=== PATIENT | female | born 1985 | race Caucasian/White ===

== ENCOUNTER 2020-08-19 09:28 | Inpatient (IN) | payer SELFPAY ==
[2020-08-19] MEDS ORDERED: NA CHLORIDE 0.9% 1,000 ML ONE ×2 (10:27→14:57)
[2020-08-19] MEDS ORDERED: DIPHENHYDRAMINE 50 MG/ML VIAL ONE ×2 (10:27→21:16)
[2020-08-19] MEDS ORDERED: LORazepam 2 MG/ML VIAL ONE ×5 (10:28→19:12)
[2020-08-19 10:30] LABS: Absolute Lymphocytes (CBC) 1.8 K/uL (0.7-4.9); Basophils % 0.9 % (0-1.3); Hematocrit 35.2 % (36.0-45.0); Lymphocytes % 36.2 % (15.3-44.8); MPV 7.7 fL (7.6-11.3); RBC Red Blood Cell Count 4.22 M/uL (3.86-4.86)
[2020-08-19 10:56] LABS: ALT/SGPT 58 U/L (12-78); AST/SGOT 65 U/L (15-37); Albumin 3.7 g/dL (3.4-5.0); Alkaline Phosphatase 133 U/L (45-117); BUN Blood Urea Nitrogen 12 mg/dL (7-18); Bicarbonate 21 mmol/L (21-32); Bilirubin Direct 0.2 mg/dL (0-0.2); Bilirubin Total 0.8 mg/dL (0.2-1.0); Glucose Level 69 mg/dL (74-106); Magnesium 2.5 mg/dL (1.8-2.4); NT PRO-BNP 75 pg/mL (<125); Potassium 4.1 mmol/L (3.5-5.1); Protein, Total 9.6 g/dL (6.4-8.2); Sodium Level 136 mmol/L (136-145); Troponin (Emerg Dept Use Only) < 0.02 ng/mL (0.0-0.045)
[2020-08-19] MEDS ORDERED: FOSPHENYTOIN PE 1,000 MG in NA CHLORIDE 0.9% 100 ML IV ONE (11:00)
[2020-08-19 11:14] LABS: Protime INR 1.09
--- NOTE | 2020-08-19 12:10 | EDPHYS ---
Physician Documentation [facility] Name: Kavitha Rogel Age: 34 yrs Sex: Female : 1985 Arrival Date: 08/19/2020 Time: 09:30 Bed 3 Private MD: ED Physician Danish Izaguirre HPI: 08/20 09:55 This 34 yrs old Female presents to ER via EMS with complaints of Chest Pain. kdr 09:55 The patient or guardian reports chest pain that is located primarily in the anterior kdr chest wall. The pain does not radiate. Associated signs and symptoms: Pertinent positives: headache, lightheadedness, nausea, palpitations, Right sided numbness. The chest pain is described as aching, dull. Duration: The patient or guardian reports multiple episodes, that are intermittent, that wax and wane, with no pattern. Modifying factors: The symptoms are alleviated by nothing. the symptoms are aggravated by nothing. Severity of pain: At its worst the pain was mild moderate in the emergency department the pain is unchanged. The patient has not experienced similar symptoms in the past. The patient has not recently seen a physician. The patient is in drug rehab for heroin addiction. She was injecting every two hours. Historical: - Allergies: 08/19 09:50 No Known Allergies; ss - Home Meds: 09:50 None [Active]; ss - PMHx: 14:34 Hepatitis; ss - PSHx: 09:50 None; ss - Immunization history:: Adult Immunizations up to date. - Social history:: Smoking status: Patient reports the use of cigarette tobacco products, smokes one pack cigarettes per day. Patient uses street drugs, heroin. ROS: 08/20 09:55 Constitutional: Negative for fever, chills, and weight loss, Eyes: Negative for injury, kdr pain, redness, and discharge, Neck: Negative for injury, pain, and swelling, Cardiovascular: Negative for chest pain, palpitations, and edema, Respiratory: Negative for shortness of breath, cough, wheezing, and pleuritic chest pain, Back: Negative for injury and pain, : Negative for injury, bleeding, discharge, and swelling, MS/Extremity: Negative for injury and deformity, Skin: Negative for injury, rash, and discoloration, Psych: Negative for depression, anxiety, suicide ideation, homicidal ideation, and hallucinations, Allergy/Immunology: Negative for hives, rash, and allergies, Endocrine: Negative for neck swelling, polydipsia, polyuria, polyphagia, and marked weight changes, Hematologic/Lymphatic: Negative for swollen nodes, abnormal bleeding, and unusual bruising. Abdomen/GI: Positive for nausea and vomiting. Neuro: Positive for seizure activity, weakness, restless. Exam: 08/19 12:45 ECG was reviewed by the Attending Physician. kdr 08/20 09:55 Constitutional: This is a well developed, well nourished patient who is awake, alert, kdr and in no acute distress. Head/Face: Normocephalic, atraumatic. Eyes: Pupils equal round and reactive to light, extra-ocular motions intact. Lids and lashes normal. Conjunctiva and sclera are non-icteric and not injected. Cornea within normal limits. Periorbital areas with no swelling, redness, or edema. Neck: Trachea midline, no thyromegaly or masses palpated, and no cervical lymphadenopathy. Supple, full range of motion without nuchal rigidity, or vertebral point tenderness. No Meningismus. Chest/axilla: Normal chest wall appearance and motion. Nontender with no deformity. No lesions are appreciated. Cardiovascular: Regular rate and rhythm with a normal S1 and S2. No gallops, murmurs, or rubs. Normal PMI, no JVD. No pulse deficits. Respiratory: Lungs have equal breath sounds bilaterally, clear to auscultation and percussion. No rales, rhonchi or wheezes noted. No increased work of breathing, no retractions or nasal flaring. Abdomen/GI: Soft, non-tender, with normal bowel sounds. No distension or tympany. No guarding or rebound. No evidence of tenderness throughout. Back: No spinal tenderness. No costovertebral tenderness. Full range of motion. Skin: Warm, dry with normal turgor. Normal color with no rashes, no lesions, and no evidence of cellulitis. MS/ Extremity: Pulses equal, no cyanosis. Neurovascular intact. Full, normal range of motion. Psych: Awake, alert, with orientation to person, place and time. Behavior, mood, and affect are within normal limits. Neuro: Orientation: is normal, Mentation: lucid, able to follow commands, Sensation: is normal, no obvious gross deficits, seizure activity, grand mal type is displayed, During the course of the patient's stay in the ED, she had several seizures - see nursing note. Those were addressed with anti-epileptic medications to which the patient generally responded well and recovered from each episode, The patient is very restless. Vital Signs: 08/19 09:30 BP 115 / 78; Pulse 84; Resp 16; Pulse Ox 100% on R/A; Weight 63.5 kg; Height 5 ft. 6 ss in. (167.64 cm); Pain 4/10; 09:50 Temp 99.4(O); ss 11:44 BP 120 / 69; Temp 100.4(O); ss 13:08 BP 95 / 60; Pulse 85; Resp 18; Pulse Ox 100% on R/A; ss 14:00 BP 97 / 54; Pulse 94; Resp 22; Pulse Ox 100% on R/A; ss 09:30 Body Mass Index 22.60 (63.50 kg, 167.64 cm) ss MDM: 09:34 Patient medically screened. kb 10:31 ED course: Verbal CT results received from Dr Hodge. CT stroke protocol negative. kb Recommends MRI if stroke like symptoms continue. 08/20 09:55 Data reviewed: vital signs, nurses notes, lab test result(s), radiologic studies. kdr Counseling: I had a detailed discussion with the patient and/or guardian regarding: the historical points, exam findings, and any diagnostic results supporting the discharge/admit diagnosis, lab results, radiology results. 08/19 09:40 Order name: Basic Metabolic Panel; Complete Time: 12:13 kb 08/19 09:40 Order name: CBC with Diff; Complete Time: 11:39 kb 08/19 09:40 Order name: LFT's; Complete Time: 12:13 kb 08/19 09:40 Order name: Magnesium; Complete Time: 12:13 kb 08/19 09:40 Order name: NT PRO-BNP; Complete Time: 12:13 kb 08/19 09:40 Order name: PT-INR; Complete Time: 11:39 kb 08/19 09:40 Order name: Troponin (emerg Dept Use Only); Complete Time: 12:13 kb 08/19 09:43 Order name: UDS kdr 08/19 09:43 Order name: ETOH Level; Complete Time: 12:13 kdr 08/19 12:41 Order name: SARS-COV-2 RT PCR EDMS 08/19 14:13 Order name: Urine Dipstick--Ancillary (enter results) mt 08/19 14:13 Order name: Urine --Ancillary (enter results) mt 08/19 14:22 Order name: Urine --Ancillary EDMS 08/19 09:40 Order name: XRAY Chest (1 view) kb 08/19 09:40 Order name: EKG; Complete Time: 09:44 kb 08/19 09:40 Order name: Cardiac monitoring; Complete Time: 10:29 kb 08/19 09:40 Order name: EKG - Nurse/Tech; Complete Time: 09:57 kb 08/19 09:40 Order name: IV Saline Lock; Complete Time: 10:29 kb 08/19 09:40 Order name: Labs collected and sent; Complete Time: 10:29 kb 08/19 09:40 Order name: O2 Per Protocol; Complete Time: 10:29 kb 08/19 09:40 Order name: O2 Sat Monitoring; Complete Time: 10:29 kb 08/19 09:40 Order name: CT Stroke Brain w/o Contrast 08/19 10:37 Order name: Labs - recollect needed; Complete Time: 10:45 mt 08/19 14:22 Order name: Urine Dipstick-Ancillary EDMS EC/01 12:45 Rate is 81 beats/min. Rhythm is regular, Normal Sinus Rhythm with No ectopy. QRS [place] kdr is Normal. HI interval is normal. QRS interval is normal. QT interval is normal. Clinical impression: NSR w/ Non-specific ST/T Changes. Administered Medications: 10:28 Drug: Benadryl 25 mg Route: IVP; Site: right upper arm; ss 11:16 Follow up: Response: No adverse reaction; No change in condition ss 10:29 Drug: Ativan 1 mg Route: IVP; Site: right upper arm; ss 11:16 Follow up: Response: No adverse reaction; No change in condition ss 10:30 Drug: NS 0.9% 1000 ml Route: IV; Rate: 1 bolus; Site: right upper arm; ss 11:15 Drug: CEREbyx 1 grams Route: IVPB; Site: right upper arm; ss Disposition: 08/20 09:32 Co-signature as Attending Physician, Danish Izaguirre MD I agree with the assessment and kdr plan of care. 09:55 Critical Care:. kdr Disposition: 08/19/20 12:10 Hospitalization ordered by Karl Rome for Inpatient Admission. Preliminary diagnosis are Opioid abuse, Opioid dependence with withdrawal, Epilepsy and recurrent seizures. - Bed requested for Intensive Care Unit. - Status is Inpatient Admission. ss - Condition is Serious. - Problem is new. - Symptoms have improved. Critical care time excluding procedures: 09:55 Critical care time: Bedside Care: 40 minutes, Consultation: 10 minutes. Total time: 50 kdr minutes Signatures: Dispatcher [employer] EDSD Elaine Ortez, RN CASE MGR-C RN CASE MGR-Ckb Danish Izaguirre MD MD [facility] Taisha Brady RN RN ss Gertrudis Benton mt Corrections: (The following items were deleted from the chart) 08/19 12:41 11:20 CORONAVIRUS+MR.LAB.BRZ ordered. EDSD EDMS 14:34 09:50 PMHx: None; ss ss 14:36 12:10 Hospitalization Ordered by Karl Rome MD for Inpatient Admission. Preliminary ss diagnosis is Opioid abuse; Opioid dependence with withdrawal; Epilepsy and recurrent seizures. Bed requested for Intensive Care Unit. Status is Inpatient Admission. Condition is Serious. Problem is new. Symptoms have improved. kdr
--- NOTE | 2020-08-19 12:10 | ER ---
Nurse's Notes [facility] Name: Kavitha Rogel Age: 34 yrs Sex: Female : 1985 Arrival Date: 08/19/2020 Time: 09:30 Bed 3 Private MD: Diagnosis: Opioid abuse;Opioid dependence with withdrawal;Epilepsy and recurrent seizures Presentation: 08/19 09:30 Chief complaint: Patient states: Chest pain and R sided weakness that began in the ss middle of the night, approximately 8 hours ago. Pt recently checked into a drug rehab facility ([facility]) for addiction to Heroin. Last use was yesterday at 0700. Pt reports that she typically uses every 2 hours. Coronavirus screen: Client denies travel out of the [place] in the last 14 days. Ebola Screen: Patient denies exposure to infectious person. Patient denies travel to an Ebola-affected area in the 21 days before illness onset. Initial Sepsis Screen: Does the patient meet any 2 criteria? No. Patient's initial sepsis screen is negative. Does the patient have a suspected source of infection? No. Patient's initial sepsis screen is negative. Risk Assessment: Do you want to hurt yourself or someone else? Patient reports no desire to harm self or others. Onset of symptoms was August 19, 2020 at 02:00. 09:30 Method Of Arrival: EMS: [facility] 09:30 Acuity: ALFRED 3 ss Historical: - Allergies: 09:50 No Known Allergies; ss - Home Meds: 09:50 None [Active]; ss - PMHx: 14:34 Hepatitis; ss - PSHx: 09:50 None; ss - Immunization history:: Adult Immunizations up to date. - Social history:: Smoking status: Patient reports the use of cigarette tobacco products, smokes one pack cigarettes per day. Patient uses street drugs, heroin. Screenin:46 Abuse screen: Denies threats or abuse. Denies injuries from another. Nutritional ss screening: No deficits noted. Tuberculosis screening: Never had TB. Fall Risk No fall in past 12 months (0 pts). Secondary diagnosis (15 points) possible withdrawal vs CVA. IV access (20 points). Ambulatory Aid- None/Bed Rest/Nurse Assist (0 pts). Gait- Normal/Bed Rest/Wheelchair (0 pts) Mental Status- Oriented to own ability (0 pts). Assessment: 09:30 General: Appears distressed, uncomfortable, Behavior is cooperative, restless. Pain: ss Complains of pain in chest Pain does not radiate. Pain currently is 4 out of 10 on a pain scale. Quality of pain is described as pressure, Pain began 0200 this morning Is continuous. Neuro: Level of Consciousness is awake, alert, obeys commands, Oriented to person, place, time, situation, Knockout Man are minimally weaker grasp to R hand.. minimally weaker grasp to R hand. Speech is normal, Facial symmetry appears normal, Pupils are PERRLA, Intact. Cardiovascular: Capillary refill < 3 seconds is brisk in bilateral fingers. Respiratory: Airway is patent Respiratory effort is even, unlabored, Respiratory pattern is regular, symmetrical. GI: Reports nausea, Patient currently denies diarrhea, vomiting. : Denies burning with urination, urinary frequency. EENT: Nares are clear Throat is clear. Derm: Skin is intact, Skin is clammy, Skin is flushed. Musculoskeletal: Range of motion: intact in all extremities. 10:38 Reassessment: pt had a seizure that lasted about 30-45 seconds, provider at bedside, em received no verbal orders at this time. 10:46 Reassessment: No seizure activity noted. Lights dimmed for comfort and to reduce ss environmental stressors. Side rails up x 2. Seizure precautions in place. Call light remains within reach. Pt is responsive to verbal stimuli. 11:22 Reassessment: seizure activity noted to last [address] Izaguirre notified. Pt is ss now awake, alert. RR remains even and unlabored. 11:32 Reassessment: Pt moved to ER room 3 for closer observation. ss 12:08 Reassessment: pt restless rolling around in the stretcher, pt reports feeling like em there are things crawling on skin, Dr. Izaguirre notified, received new medication orders. 13:00 Reassessment: Patient is alert, oriented x 3, equal unlabored respirations, skin ss warm/dry/pink. awaiting room assignment for admission to ICU. Pt aware of admission. Vital Signs: 09:30 BP 115 / 78; Pulse 84; Resp 16; Pulse Ox 100% on R/A; Weight 63.5 kg; Height 5 ft. 6 ss in. (167.64 cm); Pain 4/10; 09:50 Temp 99.4(O); ss 11:44 BP 120 / 69; Temp 100.4(O); ss 13:08 BP 95 / 60; Pulse 85; Resp 18; Pulse Ox 100% on R/A; ss 14:00 BP 97 / 54; Pulse 94; Resp 22; Pulse Ox 100% on R/A; ss 09:30 Body Mass Index 22.60 (63.50 kg, 167.64 cm) ED Course: 09:30 Patient arrived in ED. ss 09:30 Srinivasa Werner, RN is Primary Nurse. em 09:34 Elaine Ortez FNP-C [facility]. kb 09:34 Danish Izaguirre MD is Attending Physician. kb 09:43 Danish Izaguirre MD is Attending Physician. kdr 09:44 Triage completed. ss 09:50 Arm band placed on right wrist. ss 09:57 EKG done, by ED staff, reviewed by Danish Izaguirre MD. dh3 09:58 Note: NO CODE STROKE CALLED, TECH WAITING AT BEDSIDE TO TRANSPORT FOR CT, PT CURRENTLY sw GETTING MIDLINE. 10:20 Inserted saline lock: 20 gauge in right upper arm, using aseptic technique. Blood ag2 collected. 20g 10cm midline to right upper arm, first attempt. 10:22 CT Stroke Brain w/o Contrast In Process Unspecified. EDMS 10:49 Taisha Brady, ROBERT is Primary Nurse. ss 11:05 XRAY Chest (1 view) In Process Unspecified. EDMS 11:22 Patient has correct armband on for positive identification. Bed in low position. Call ss light in reach. Side rails up X2. Seizure precautions initiated. college advisor on. Pulse ox on. NIBP on. 11:22 Patient maintains SpO2 saturation greater than 95% on room air. ss 12:09 Karl Rome MD is Hospitalizing Provider. kdr 14:33 No provider procedures requiring assistance completed. Patient admitted, IV remains in ss place. Administered Medications: 10:28 Drug: Benadryl 25 mg Route: IVP; Site: right upper arm; ss 11:16 Follow up: Response: No adverse reaction; No change in condition ss 10:29 Drug: Ativan 1 mg Route: IVP; Site: right upper arm; ss 11:16 Follow up: Response: No adverse reaction; No change in condition 10:30 Drug: NS 0.9% 1000 ml Route: IV; Rate: 1 bolus; Site: right upper arm; 11:15 Drug: CEREbyx 1 grams Route: IVPB; Site: right upper arm; Outcome: 12:10 Decision to Hospitalize by Provider. kdr 14:33 Admitted to ICU via wheelchair, Report called to ROBERT Noble 14:33 Condition: stable 14:33 Instructed on the need for admit. 14:36 Patient left the ED. Signatures: Dispatcher [employer] EDMS Elaine Ortez, CHECK WRITING MACHINE OPERATOR-C CHECK WRITING MACHINE OPERATOR-Ckb Danish Izaguirre MD MD kdr Munoz, Edgar, RN RN em Smirch, Shelby, RN RN Karissa Hewitt Deanna [facility] Hemalatha Dinh Corrections: (The following items were deleted from the chart) 14:34 09:50 PMHx: None; ss
--- NOTE | 2020-08-19 14:00 | P.HP ---
Certification for Inpatient Patient admitted to: Inpatient With expected LOS: >2 Midnights Practitioner: I am a practitioner with admitting privileges, knowledge of patient current condition, hospital course, and medical plan of care. Services: Services provided to patient in accordance with Admission requirements found in Title 42 Section 412.3 of the Code of Federal Regulations Patient History Date of Service: 08/19/20 Reason for admission: Acute opioid withdrawal with seizures, chest pain History of Present Illness: 34-year-old female, PMH: +HepC > 15yrs Opioid dependence/abuse who recently self admitted herself to inpatient rehab yesterday. She was advised to come to the ED this morning due to new onset of chest pain and right sided weakness and decreased sensation. Patient said she did not notice the symptoms until the doctor at the rehab I was examining her at 6:00 a.m.. She reports at least a 5 year history of heroin use, using 2-3 g daily. She reports a prior history of opioid withdrawal with associated seizures. In the ED, she was noted to have 2 brief seizures. Neurology was consulted in the ED and patient was loaded with Dilantin and given Ativan. Labwork was notable for no leukocytosis, elevated alk-phos: 133, negative local level, urine tox positive for opiates and amphetamines. CT brain was negative for any acute intracranial process. Patient reports yesterday she was otherwise feeling feeling like her normal self. No recent illness common no fevers, chills, vision changes, abdominal pain, change in bowel/urinary habits. She would like to stop using opiates and is interested in returning to rehab. Allergies No Known Allergies Allergy (Unverified 08/19/20 10:54) Home Medications: NK [No Home Meds] 08/19/20 - Past Medical/Surgical History -: Hepatitis-C -: Opiate dependence/abuse -: Recurrent nephrolithiasis -: Multiple lithotripsies - Social History Smoking Status: Current every day smoker Smoking therapy provided: Yes Alcohol use: Yes Review of Systems 10-point ROS is otherwise unremarkable Physical Examination - Physical Exam General: Other (Appears sleepy after receiving Ativan, able to answer questions, restless) HEENT: Mucous membr. moist/pink Neck: Supple, JVD not distended Respiratory: Clear to auscultation bilaterally, Normal air movement Cardiovascular: No edema, Regular rate/rhythm, Normal S1 S2 Gastrointestinal: Soft and benign, Non-distended, No tenderness Musculoskeletal: No erythema, No tenderness Integumentary: No rashes, No significant lesion Neurological: Normal speech, Other (Strength: 5/5 on left upper and lower extremities, 4-/5 on R upper and lower extremities), Abnormal sensation (no sensation to light touch on R face, significantly diminished sensation to right arm and leg, absent sensation (light touch and pain) of R hand & foot) - Studies Laboratory Data (last 24 hrs) 08/19/20 10:45: PT 12.8 H, INR 1.09 08/19/20 10:00: WBC 4.9, Hgb 11.8 L, Hct 35.2 L, Plt Count 346 08/19/20 10:00: Sodium 136, Potassium 4.1, BUN 12, Creatinine 0.71, Glucose 69 L, Magnesium 2.5 H, Total Bilirubin 0.8, AST 65 H, ALT 58, Alkaline Phosphatase 133 H Assessment and Plan - Advance Directives Does patient have a Living Will: No Does patient have a Durable POA for Healthcare: No Physician Review Additional Text: Acute opioid withdrawal complicated by seizures Opioid dependence/abuse Right-sided weakness and decreased sensation Tobacco use Acute opioid withdrawal complicated by seizures Opioid dependence/abuse -admit to ICU -NPO, aspiration precautions, IV fluid -neurology consulted in the ED, patient loaded with fosphenytoin -given a few doses of Ativan in the ED as well -will start patient on clonidine 0.1 mg p.r.n. for withdrawal symptoms, continue p.r.n. Ativan as well, COWS protocol -patient last injection was 7:00 a.m. yesterday, typically uses 2-3 g a day -continued to have seizures, discussed with Neurology, will load with Keppra, continue 500 mg b.i.d. starting tomorrow -fosphenytoin 100 mg q. 8 hr IV Right-sided weakness and decreased sensation -I discuss with the radiologist, CT brain was negative -attempted MRI brain stroke protocol, however patient unable to lay still for exam -unclear if this is symptomatology from her opioid withdrawal -neurology consulted as noted above -holding off on DVT prophylaxis given potential/risk for brain bleed Tobacco use -nicotine patch ordered Dispo: anticipate hospitalization > 2 days, agreeable to inpatient rehab Time Spent Managing Pts Care (In Minutes): 60
[2020-08-19 14:21] LABS: Urine Blood NEGATIVE (NEG); Urine Glucose NEGATIVE (NEG); Urine Protein NEGATIVE (NEG); Urine Specific Gravity 1.025 (1.005-1.030)
[2020-08-19 14:25] LABS: Barbiturates NEGATIVE (NEGATIVE); Benzodiazepines NEGATIVE (NEGATIVE); Cocaine NEGATIVE (NEGATIVE); METHAMPHETAM POSITIVE (NEGATIVE); Methadone NEGATIVE (NEGATIVE); Opiates POSITIVE (NEGATIVE); Phencyclidine NEGATIVE (NEGATIVE); THC Cannibis NEGATIVE (NEGATIVE)
[2020-08-19] MEDS ORDERED: LORazepam 2 MG/ML VIAL IV PRN (14:28)
[2020-08-19] MEDS: NA CHLORIDE 0.9% 1,000 ML IV SCH (14:47)
[2020-08-19] MEDS: cloNIDine HCL 0.1 MG TAB PO PRN ×3 (15:33→20:28)
[2020-08-19 15:40] VITALS: BMI 22.6
[2020-08-19] MEDS ORDERED: cloNIDine HCL 0.1 MG TAB ONE ×4 (15:45→19:12)
[2020-08-19] MEDS: NA CHLORIDE 0.9% IV SCH (17:00)
[2020-08-19] MEDS ORDERED: levETIRAcetam 1,000 MG in NA CHLORIDE 0.9% 100 ML IV ONE (17:00)
[2020-08-19] MEDS: FOSPHENYTOIN PE IV SCH (17:00)
[2020-08-19] MEDS ORDERED: LORazepam 2 MG/ML VIAL IM ONE ×2 (19:00→21:11)
[2020-08-19] MEDS: NICOTINE 21 MG/PAT TD SCH (19:02)
[2020-08-19] MEDS ORDERED: NICOTINE 21 MG/PAT TD ONE (19:12)
[2020-08-19] MEDS: LORazepam 2 MG/ML VIAL IM PRN (19:45)
[2020-08-19] MEDS ORDERED: ZIPRASIDONE MESYLA 20 MG/VIAL IM ONE ×4 (20:27→22:24)
[2020-08-19] MEDS: WATER FOR INJ,STERILE 10 ML IM PRN ×2 (20:28→22:30)
[2020-08-19] MEDS ORDERED: WATER FOR INJ,STERILE 10 ML ONE (20:28)
[2020-08-19] MEDS ORDERED: PHENYTOIN ER 100 MG CAP PO SCH (21:00)
[2020-08-19] MEDS ORDERED: LORazepam 2 MG/ML VIAL IV ONE (21:11)
[2020-08-19] MEDS ORDERED: DIPHENHYDRAMINE 50 MG/ML VIAL IM ONE (21:30)
[2020-08-19] MEDS ORDERED: WATER FOR INJ,STERILE 10 ML IM PRN (22:19)
[2020-08-20] MEDS: LORazepam 2 MG/ML VIAL IM PRN (00:20)
[2020-08-20] MEDS: NA CHLORIDE 0.9% 1,000 ML IV SCH ×3 (00:28→20:52)
[2020-08-20] MEDS ORDERED: LORazepam 2 MG/ML VIAL ONE ×4 (00:32→20:25)
[2020-08-20] MEDS: FOSPHENYTOIN PE IV SCH ×3 (03:00→17:43)
[2020-08-20] MEDS: NA CHLORIDE 0.9% IV SCH ×3 (03:00→17:43)
[2020-08-20] MEDS: LORazepam 2 MG/ML VIAL IV PRN ×2 (04:15→20:14)
[2020-08-20 05:01] LABS: Absolute Lymphocytes (CBC) 2.7 K/uL (0.7-4.9); Basophils % 0.5 % (0-1.3); Lymphocytes % 42.4 % (15.3-44.8); MPV 8.1 fL (7.6-11.3); RBC Red Blood Cell Count 3.94 M/uL (3.86-4.86)
[2020-08-20 05:13] LABS: ALT/SGPT 44 U/L (12-78); AST/SGOT 47 U/L (15-37); Albumin 3.3 g/dL (3.4-5.0); Alkaline Phosphatase 109 U/L (45-117); BUN Blood Urea Nitrogen 11 mg/dL (7-18); Bicarbonate 20 mmol/L (21-32); Bilirubin Total 0.6 mg/dL (0.2-1.0); Glucose Level 76 mg/dL (74-106); Magnesium 2.3 mg/dL (1.8-2.4); Phosphorus 2.5 mg/dL (2.5-4.9); Potassium 3.7 mmol/L (3.5-5.1); Protein, Total 8.2 g/dL (6.4-8.2); Sodium Level 142 mmol/L (136-145)
[2020-08-20 05:23] LABS: Blood Morphology Comment NOT SEEN (NOT SEEN); Platelet Estimate ADEQ; White Blood Cell Scan OK (OK)
[2020-08-20] MEDS ORDERED: NICOTINE 21 MG/PAT TD ONE (08:09)
--- NOTE | 2020-08-20 08:13 | P.PN ---
Subjective Date of Service: 08/20/20 Chief Complaint: Acute opioid withdrawal with seizures, chest pain Subjective: Other (overnight with increased restlesness, lost IV Access temporarily, difficult stick received geodon x2, became more calm around 1-2 am. vitals stable / WNL sleepy this morning, but arousable, answers questions briefly) Review of Systems 10-point ROS is otherwise unremarkable Physical Examination - Vital Signs Temperature: 97.8 F Blood Pressure: 121/75 Pulse: 77 Respirations: 16 Pulse Ox (%): 99 - Physical Exam General: Oriented x3, Other (sleepy, arousable to verbal stimuli briefly) Neck: JVD not distended Respiratory: Clear to auscultation bilaterally Cardiovascular: No edema, Regular rate/rhythm, Normal S1 S2 Gastrointestinal: Soft and benign, Non-distended, No tenderness Musculoskeletal: No erythema Integumentary: No rashes, No significant lesion Neurological: Abnormal strength (4/5 in Right upper and lower extremities, 5/5 on left), Abnormal sensation (difficult to fully ascertain, did report feeling light touch on R face today, no reaction to fingernail pressure on right, normal removal of hand on left due fingernail pressure) - Studies Laboratory Data (last 24 hrs) 08/19/20 10:45: PT 12.8 H, INR 1.09 08/19/20 10:00: WBC 4.9, Hgb 11.8 L, Hct 35.2 L, Plt Count 346 08/19/20 10:00: Sodium 136, Potassium 4.1, BUN 12, Creatinine 0.71, Glucose 69 L, Magnesium 2.5 H, Total Bilirubin 0.8, AST 65 H, ALT 58, Alkaline Phosphatase 133 H Assessment & Plan Physician Review Additional Text: Acute opioid withdrawal complicated by seizures Opioid dependence/abuse Right-sided weakness and decreased sensation Tobacco use Acute opioid withdrawal complicated by seizures Opioid dependence/abuse -admitted to ICU -NPO, aspiration precautions, IV fluid -neurology consulted in the ED, patient loaded with fosphenytoin and continued on 100mg q8hr IV -subsequently loaded with 1g Keppra on 08/19 and continued on 500mg BID for continued brief seizures -increased agitation/restlessness overnight, improved with ativan, clonidine, and geodon x2 -continue clonidine 0.1 mg p.r.n. for withdrawal symptoms, continue p.r.n. Ativan as well, COWS protocol -patient last heroin injection was 7:00 a.m. on day prior to admission, typically uses 2-3 g a day -continue to monitor closely Right-sided weakness and decreased sensation -I discussed with the radiologist, initial CT brain was negative -attempted MRI brain stroke protocol yesterday, however patient unable to lay still for exam, continues with restlessness and unable to remain still -unclear if this is symptomatology from her opioid withdrawal, continues with numbness, no withdrawal of R hand to fingernail pressure. Weakness possibly slightly better -discussed with neurology on admission -holding off on DVT prophylaxis given potential/risk for brain bleed -due to inability to obtain MRI, will recheck CT brain/neck today Tobacco use -nicotine patch ordered Dispo: anticipate hospitalization > 2 days, agreeable to inpatient rehab Time Spent Managing Pts Care (In Minutes): 35
--- NOTE | 2020-08-20 09:04 | RAD REPORT ---
EXAM DESCRIPTION: CT - Ct Stroke Brain Wo Cont - 08/19/2020 10:18 pm CLINICAL HISTORY: WEAKNESS, stroke protocol study COMPARISON: No comparisons TECHNIQUE: Axial 5 millimeter thick images of the head were obtained without IV contrast. All CT scans are performed using dose optimization technique as appropriate and may include automated exposure control or mA/KV adjustment according to patient size. FINDINGS: No intracranial hemorrhage, mass, or cerebral edema. No acute infarction identifiable. No extra-axial fluid collections. Qureshi matter-white matter differentiation is preserved. Visualized portions of the mastoid air cells, paranasal sinuses, and orbits are unremarkable. Findings telephoned to the referring physician 10:28 a.m.. Report was delayed due to malfunction of 115 network disks mortgage broker system. IMPRESSION: No CT evidence of acute intracranial process.
--- NOTE | 2020-08-20 09:42 | RAD REPORT ---
EXAM DESCRIPTION: CT - CTHCSPWOC - 08/20/2020 9:18 am CLINICAL HISTORY: R sided numbness (face/arm/leg) COMPARISON: Ct Stroke Brain Wo Cont dated 08/19/2020 TECHNIQUE: Axial 5 mm thick images of the head were obtained. Axial 2 mm thick images of the cervic al spine were obtained with sagittal and coronal reconstruction images generated and reviewed. All CT scans are performed using dose optimization technique as appropriate and may include automated exposure control or mA/KV adjustment according to patient size. FINDINGS: No intracranial hemorrhage, mass, edema or acute intracranial finding. No suspicion for ac [place] infarction. No extra-axial fluid collections. Mastoid air cells and paranasal sinuses are clear. No globe or orbit abnormality seen. No change from prior day study. Cervical body height and alignment are normal. No disk space narrowing. No fracture or acute bony abn ormality. Central canal detail is inherently limited. No paraspinal mass or hematoma. IMPRESSION: Negative CT head examination for acute or significant finding. No change from prior day study. Negative CT cervical spine examination for acute or significant finding.
[2020-08-20] MEDS: levETIRAcetam 500 MG in NA CHLORIDE 0.9% 100 ML IV SCH ×2 (09:57→20:51)
[2020-08-20] MEDS: NICOTINE 21 MG/PAT TD SCH (10:00)
--- NOTE | 2020-08-20 10:56 | RAD REPORT ---
EXAM DESCRIPTION: RAD - Chest Single View - 08/19/2020 10:18 pm CLINICAL HISTORY: CHEST PAIN COMPARISON: None TECHNIQUE: AP portable chest image was obtained 08/19/2020 10:18 pm . FINDINGS: Lungs are clear. Heart and vasculature are normal. No measurable pleural effusion and no p neumothorax. No acute bony abnormality seen. No acute aortic findings suspected. IMPRESSION: No acute cardiopulmonary process.
--- NOTE | 2020-08-20 11:41 | EKG ---
Test Date: 2020-08-19 Test Time: 09:30:14 Chief Transfer And Pumphouse Operator: NIMESH MEASUREMENT RESULTS: Intervals: Rate: 81 MD: 136 QRSD: 84 QT: 402 QTc: 466 [place]: P: 67 MD: 136 QRS: 72 T: 35 INTERPRETIVE STATEMENTS: Normal sinus rhythm T wave abnormality, consider anterior ischemia Prolonged QT Abnormal ECG No previous ECG available for comparison Electronically Signed On 08-20-20 11:37:47 CDT by Vinod Rivas
--- NOTE | 2020-08-20 16:06 | RAD REPORT ---
EXAM DESCRIPTION: MRI - Brain W/Wo Cont - 08/20/2020 3:47 pm CLINICAL HISTORY: Right numbness COMPARISON: August [address] TECHNIQUE: Axial, sagittal, and coronal magnetic images of the brain were obtained. 14 cc MultiHance administered intravenously FINDINGS: Mild to moderate signal within periventricular, deep and subcortical white matter probably ischemic changes secondary to small vessel disease The ventricles are normal in caliber. Diffusion-weighted/ ADC mapping sequences do not demonstrate evidence of an acute infarction. No abnormal enhancement within the brain is seen. An extra-axial fluid collection is not noted. Fluid within the sinuses/mastoids is not seen IMPRESSION: No acute abnormality displayed
--- NOTE | 2020-08-20 16:08 | RAD REPORT ---
EXAM DESCRIPTION: MRI - MRA Head Wo Cont - 08/20/2020 3:48 pm CLINICAL HISTORY: Numbness COMPARISON: None. TECHNIQUE: Magnetic resonance angiogram was performed. 3D MIPS reconstruction performed FINDINGS: The anterior cerebral, middle cerebral, posterior cerebral, distal internal carotid and ba silar arteries do not demonstrate a significant stenosis. An aneurysm is not displayed. IMPRESSION: Unremarkable MRA brain.
--- NOTE | 2020-08-20 16:10 | RAD REPORT ---
EXAM DESCRIPTION: MRI - MRA Neck W/Wo Cont - 08/20/2020 3:47 pm CLINICAL HISTORY: Numbness COMPARISON: None. TECHNIQUE: Magnetic resonance angiogram of the neck was performed. 14 cc MultiHance was administered intravenously. 3D MIPS reconstruction performed FINDINGS: The common carotid, internal carotid and external carotid arteries do not demonstrate a si gnificant stenosis. An aneurysm is not seen. The vertebral arteries are codominant without visualization of an abnormality. IMPRESSION: Unremarkable MRA neck NASCET criteria used. Mild 0-49% stenosis Moderate 50-69% stenosis Severe 70-99% stenosis
--- NOTE | 2020-08-20 19:01 | CON ---
Consultation was called because of seizures and opiate withdrawal. History Of Present Illness: Ms. Rogel is a 34-year-old patient with history of hepatitis C and opiate dependency and abuse who has been using for at least 5 years regularly, comes in after she was found to have some right-sided weakness and numbness by her physician after she checked into an outpatient rehab. The patient was brought back to the hospital and was observed to have 2 seizures, although the details could not be discerned from chart review and nurses are not aware of what was go ing on as they were not on that shift. In any event, the seizures were apparently tonic-clonic type activity. The patient was given Dilantin and Ativan and the events subsided. She did have elevated alkaline phosphatase. There was a positive urine screen for opiates and amphetamines. CT of the bra in showed no acute ischemic or hemorrhagic changes. While in the ICU, the patient had another bout o f seizures and was then given Keppra 5000 mg load and 500 mg twice daily IV and Dilantin was continue d at 100 mg every 8 hours. Since that time, the patient has had no further seizure activity and has began to return to baseline. Previously, she did have some agitation and combative type behavior and could not lie still for an MRI, but now she is more awake and cooperative. Past Medical History: As indicated in digital record, nephrolithiasis, multiple lithotripsies, opiat e dependency, hepatitis C. Allergies: NO KNOWN DRUG ALLERGIES. Medications: At home, no medications. Social History: Smokes and drinks alcohol and uses illegal drugs daily. Family History: Noncontributory. Review of Systems: Aside from mentioned, no fevers, chills, nausea, vomiting, myalgias, arthralgias, rash, headache, esther ght change. No psychiatric complaints, gastrointestinal or genitourinary complaints. Physical Examination: Vital Signs: Blood pressure 120/76, pulse 87, respiratory rate 18, temperature 98.9, oxygen saturati on 100%. Weight 140 pounds, height 5 feet 6 inches, BMI 22.6. General: Ms. Rogel is resting in bed. She is in no acute distress. HEENT: She is normocephalic, atraumatic. Sclerae anicteric. Oropharynx is moist and pink. Neck: Supple. Chest: Clear. Heart: Regular. Extremities: Show no edema, clubbing or cyanosis. Neurologic: She does have a right face arm and leg numbness with decreased position sense, light jessica ch, temperature in the hand, face, and feet, less so in the trunk and the arm into the hand and the b ack. She does have some mild weakness in the right compared to the left side around 4+/5, left side 5/5. Coordination intact, but slow on the right and left upper extremity. Reflexes symmetric, 1+ in upper and lower extremities. Gait, she actually ambulated when she was brought for MRI. Laboratory Studies: Complete blood count with differential shows normal white blood cell count 10, h emoglobin and hematocrit are slightly low. Coagulation panel shows INR 1.09. Chemistries essentiall y unremarkable except slightly elevated chloride 114, this is today, yesterday was normal. Her liver function studies showed normal alkaline phosphatase now and improved AST to 47 from 65. Assessment: Ms. Rogel is a 34-year-old patient with a long history of opioid abuse, amphetamine and o piate positive and apparent seizure with focal right-sided face, arm, and leg numbness and weakness. She has a negative head CT scan and brain MRI is pending. She should be watched for opiate withdraw al. Plan: 1.Follow up MRI of the brain. 2.The patient did have an EEG that was remarkable for fast activity, otherwise unremarkable. 3.Continue Dilantin and Keppra as indicated. 4.She should follow up with a drug rehabilitation program. 5.May consider Topamax for headache prophylaxis, which she does have a history of. 6.She may follow up with her neurologist and primary care physician as scheduled. VAISHALI Voice ID: [id number] Report ID: [id number]
[2020-08-20] MEDS ORDERED: NA CHLORIDE 0.9% 1,000 ML ONE (20:23)
[2020-08-20] MEDS ORDERED: LEVETIRACETAM 500 MG/5 ML VIAL IV ONE (21:01)
[2020-08-20] MEDS ORDERED: NA CHLORIDE 0.9% 100 ML IV ONE (21:02)
[2020-08-20] MEDS: cloNIDine HCL 0.1 MG TAB PO PRN (22:37)
[2020-08-20] MEDS ORDERED: cloNIDine HCL 0.1 MG TAB ONE (22:46)
[2020-08-21] MEDS: NA CHLORIDE 0.9% IV SCH ×3 (00:29→16:06)
[2020-08-21] MEDS: FOSPHENYTOIN PE IV SCH ×3 (00:29→16:06)
[2020-08-21] MEDS ORDERED: NA CHLORIDE 0.9% 1,000 ML ONE ×2 (06:08→16:18)
[2020-08-21 06:10] LABS: Absolute Lymphocytes (CBC) 2.6 K/uL (0.7-4.9); Basophils % 1.1 % (0-1.3); Hematocrit 31.1 % (36.0-45.0); Lymphocytes % 47.3 % (15.3-44.8); MPV 8.2 fL (7.6-11.3); RBC Red Blood Cell Count 3.69 M/uL (3.86-4.86)
[2020-08-21 06:16] LABS: ALT/SGPT 36 U/L (12-78); AST/SGOT 29 U/L (15-37); Alkaline Phosphatase 100 U/L (45-117); BUN Blood Urea Nitrogen 9 mg/dL (7-18); Bicarbonate 15 mmol/L (21-32); Bilirubin Total 0.7 mg/dL (0.2-1.0); Glucose Level 60 mg/dL (74-106); Phosphorus 2.2 mg/dL (2.5-4.9); Potassium 3.6 mmol/L (3.5-5.1); Protein, Total 7.7 g/dL (6.4-8.2); Sodium Level 140 mmol/L (136-145)
[2020-08-21] MEDS: NA CHLORIDE 0.9% 1,000 ML IV SCH ×2 (06:16→16:06)
[2020-08-21] MEDS: cloNIDine HCL 0.1 MG TAB PO PRN ×6 (06:55→19:52)
[2020-08-21] MEDS ORDERED: cloNIDine HCL 0.1 MG TAB ONE ×6 (07:07→22:02)
[2020-08-21] MEDS: LORazepam 2 MG/ML VIAL IV PRN ×3 (07:23→17:54)
[2020-08-21] MEDS ORDERED: LORazepam 2 MG/ML VIAL ONE ×3 (07:33→18:05)
[2020-08-21] MEDS ORDERED: POTASSIUM CL SA 10 MEQ TAB PO ONE ×2 (08:10→09:00)
[2020-08-21] MEDS ORDERED: NICOTINE 21 MG/PAT TD ONE (08:11)
[2020-08-21 08:20] LABS: Blood Morphology Comment NOT SEEN (NOT SEEN); Platelet Estimate ADEQ; White Blood Cell Scan OK (OK)
[2020-08-21] MEDS: levETIRAcetam 500 MG in NA CHLORIDE 0.9% 100 ML IV SCH ×2 (08:41→19:56)
[2020-08-21] MEDS ORDERED: POTASSIUM PHOS IN 0.9 % NACL 15 MMOL/250 ML BAG IV ONE (09:00)
[2020-08-21] MEDS: NICOTINE 21 MG/PAT TD SCH (09:03)
[2020-08-21] MEDS: ONDANSETRON 4 MG/2 ML VIAL IV PRN ×2 (09:26→19:53)
[2020-08-21] MEDS ORDERED: ONDANSETRON 4 MG/2 ML VIAL ONE ×2 (09:38→20:00)
--- NOTE | 2020-08-21 10:21 | P.PN ---
Subjective Date of Service: 08/21/20 Chief Complaint: Acute opioid withdrawal with seizures, chest pain Subjective: Improving (CT and MRI performed yesterday, negative for any acute pathology More alert this morning, reports anxiety/restlessness/itchiness/abdominal discomfort rating them a 5/10) Physical Examination - Vital Signs Temperature: 99.1 F Blood Pressure: 113/79 Pulse: 78 Respirations: 15 Pulse Ox (%): 99 - Physical Exam General: Alert, Oriented x3, Other (Restless) HEENT: EOMI Respiratory: Clear to auscultation bilaterally, Normal air movement Cardiovascular: Regular rate/rhythm (Occasional sinus tachycardia), Normal S1 S2 Gastrointestinal: Soft and benign, Non-distended, Tenderness (Very mild discomfort on deep palpation) Musculoskeletal: No erythema, No tenderness Integumentary: No rashes Neurological: Normal speech, Abnormal sensation (Absent sensation to light touch, pain, and position sense of right fingers and toes) Assessment & Plan Physician Review Additional Text: Acute opioid withdrawal complicated by seizures Opioid dependence/abuse Right-sided weakness and decreased sensation Tobacco use Acute opioid withdrawal complicated by seizures Opioid dependence/abuse -admitted to ICU -initially NPO, aspiration precautions, IV fluid; patient more alert and awake, will advance diet, continue aspiration precautions -neurology consulted in the ED, patient loaded with fosphenytoin and continued on 100mg q8hr IV -subsequently loaded with 1g Keppra on 08/19 and continued on 500mg BID for continued brief seizures -increased agitation/restlessness overnight on 08/19, improved with ativan, cloni dine, and geodon x2 -continue clonidine 0.1 mg p.r.n. for withdrawal symptoms, continue p.r.n. Ativan as well, COWS protocol -patient last heroin injection was 7:00 a.m. on day prior to admission, typ kaylee uses 2-3 g a day -continue to monitor closely -patient would like to return to inpatient rehab when appropriate Right-sided weakness and decreased sensation -I discussed with the radiologist, initial CT brain was negative -initial MRI unable to be done due to the patient's restlessness. Was able to be obtained on 08/20: Negative for any acute pathology -unclear if this is symptomatology from her opioid withdrawal, continues with numbness, no withdrawal of R hand to fingernail pressure. Weakness possibly slightly better -discussed with neurology - possible Karlos's paralysis given recent seizures -holding off on DVT prophylaxis given potential/risk for brain bleed Tobacco use -nicotine patch ordered Dispo: Discharge back to inpatient rehab, likely in 24-48 hr, dependent and improvement of her symptoms Time Spent Managing Pts Care (In Minutes): 35
[2020-08-21] MEDS: ACETAMINOPHEN 325 MG TABLET PO PRN (18:00)
[2020-08-21] MEDS ORDERED: ACETAMINOPHEN 325 MG TABLET ONE (18:10)
[2020-08-22] MEDS: FOSPHENYTOIN PE IV SCH ×4 (00:08→17:51)
[2020-08-22] MEDS: NA CHLORIDE 0.9% IV SCH ×4 (00:08→17:51)
[2020-08-22] MEDS ORDERED: NA CHLORIDE 0.9% 1,000 ML ONE ×2 (01:02→11:05)
[2020-08-22] MEDS: NA CHLORIDE 0.9% 1,000 ML IV SCH ×3 (01:25→22:28)
[2020-08-22] MEDS: LORazepam 2 MG/ML VIAL IV PRN ×3 (02:50→15:53)
[2020-08-22] MEDS ORDERED: LORazepam 2 MG/ML VIAL ONE ×4 (03:00→20:42)
[2020-08-22] MEDS: cloNIDine HCL 0.1 MG TAB PO PRN ×2 (03:31→08:16)
[2020-08-22 05:18] LABS: BUN Blood Urea Nitrogen 3 mg/dL (7-18); Bicarbonate 19 mmol/L (21-32); Glucose Level 125 mg/dL (74-106); Magnesium 1.9 mg/dL (1.8-2.4); Phosphorus 1.8 mg/dL (2.5-4.9); Sodium Level 142 mmol/L (136-145)
[2020-08-22] MEDS: POTASS/SODIUM PHOSPHATE 1 PKT POWD.PACK PO SCH ×3 (06:05→08:14)
[2020-08-22] MEDS ORDERED: POTASS/SODIUM PHOSPHATE 1 PKT POWD.PACK ONE (06:10)
[2020-08-22] MEDS ORDERED: NICOTINE 21 MG/PAT TD ONE (08:14)
[2020-08-22] MEDS: NICOTINE 21 MG/PAT TD SCH (08:14)
[2020-08-22] MEDS: ACETAMINOPHEN 325 MG TABLET PO PRN ×3 (08:14→23:09)
[2020-08-22] MEDS ORDERED: cloNIDine HCL 0.1 MG TAB ONE ×5 (08:15→20:39)
[2020-08-22] MEDS ORDERED: ACETAMINOPHEN 325 MG TABLET ONE ×3 (08:15→21:26)
[2020-08-22] MEDS: levETIRAcetam 500 MG in NA CHLORIDE 0.9% 100 ML IV SCH (08:16)
--- NOTE | 2020-08-22 09:48 | P.PN ---
Subjective Date of Service: 08/22/20 Chief Complaint: Acute opioid withdrawal with seizures, chest pain Subjective: Improving (Awake and alert, reports withdrawal symptoms are improving, feels like the worst is behind her Overnight nursing report ~ 10 seconds of seizure-like activity, patient with temporary mild confusion afterward) Physical Examination - Vital Signs Temperature: 99.1 F Blood Pressure: 112/68 Pulse: 85 Respirations: 16 Pulse Ox (%): 100 - Physical Exam General: Alert, Oriented x3, Other (Restless) HEENT: Mucous membr. moist/pink Neck: Supple Respiratory: Clear to auscultation bilaterally Cardiovascular: No edema, Regular rate/rhythm (Occasional tachycardia), Normal S1 S2 Gastrointestinal: Soft and benign, Non-distended, Tenderness (Very mild discomfort on deep palpation) Integumentary: No rashes, No breakdown Neurological: Normal speech, Normal affect, Abnormal strength (RUE & RLE: 4/5, left side: 5/5), Abnormal sensation (mild sensation to touch and pain on R hand/feet, better sensation noted on R arm/leg. Normal sensation of L arm/leg) Assessment & Plan Physician Review Additional Text: Acute opioid withdrawal complicated by seizures Opioid dependence/abuse Right-sided weakness and decreased sensation Tobacco use Acute opioid withdrawal complicated by seizures Opioid dependence/abuse -patient last heroin injection was 7:00 a.m. on day prior to admission, typically uses 2-3 g a day -admitted to ICU, initially NPO, aspiration precautions, IV fluid; patient more alert and awake, advance to full liquid on 08/21, continue aspiration precautions -neurology consulted in the ED, patient loaded with fosphenytoin and continued on 100mg q8hr IV -subsequently loaded with 1g Keppra on 08/19 and continued on 500mg BID for continued brief seizures -increased agitation/restlessness overnight on 08/19, improved with ativan, clonidine, and geodon x2 -reviewed past clonidine doses, will schedule 0.2 mg q.4 hr today, continue p.r.n. Ativan as well, COWS protocol -had 1 brief (~10sec) episode of seizure like activity overnight with a postictal period; will discuss with neurology -continue to monitor closely -patient would like to return to inpatient rehab when appropriate Right-sided weakness and decreased sensation -initial CT brain was negative -initial MRI unable to be done due to the patient's restlessness. A repeat CT brain was performed ~ 24 hr after admission and was negative -MRI was eventually able to be obtained on 08/20: Negative for any acute pathology -unclear if this is symptomatology from her opioid withdrawal -discussed with neurology - possible Karlos's paralysis given recent seizures -with some mild improvement noted on exam today -will initiate dvt prophylaxis, no bleed noted Tobacco use -nicotine patch ordered Dispo: anticipate hospitalization for another 24-48hrs, dependent on course of withdrawal Had long discussion with Maverick, director from [facility] detox facility - she stated the REGISTERED RESPIRATORY TECHNICIAN and MD refuse re-admission to their detox program due to seizure activity Maverick reported patient may be able to return for the residential component of their facility once she has completed withdrawal and seizures are under control Time Spent Managing Pts Care (In Minutes): 35
[2020-08-22] MEDS: cloNIDine HCL 0.1 MG TAB PO SCH ×4 (10:49→21:23)
[2020-08-22] MEDS: ENOXAPARIN 40 MG/0.4 ML SQ SCH (10:49)
[2020-08-22] MEDS ORDERED: ENOXAPARIN 40 MG/0.4 ML SQ ONE (11:01)
[2020-08-22] MEDS: ONDANSETRON 4 MG/2 ML VIAL IV PRN (12:06)
[2020-08-22] MEDS ORDERED: ONDANSETRON 4 MG/2 ML VIAL ONE (12:18)
[2020-08-22] MEDS ORDERED: FOSPHENYTOIN PE 100 MG/2 ML VIAL ONE (17:39)
[2020-08-22] MEDS: levETIRAcetam 750 MG in NA CHLORIDE 0.9% 100 ML IV SCH ×2 (20:33→21:00)
[2020-08-22] MEDS ORDERED: levETIRAcetam 500 MG TAB PO ONE (22:58)
[2020-08-22] MEDS ORDERED: levETIRAcetam 500 MG TAB ONE (23:20)
[2020-08-23] MEDS: cloNIDine HCL 0.1 MG TAB PO SCH ×5 (02:00→20:00)
[2020-08-23] MEDS: NA CHLORIDE 0.9% 1,000 ML IV SCH ×4 (03:05→22:13)
[2020-08-23] MEDS ORDERED: NA CHLORIDE 0.9% 1,000 ML ONE ×2 (03:14→14:04)
[2020-08-23 05:48] LABS: BUN Blood Urea Nitrogen 2 mg/dL (7-18); Bicarbonate 24 mmol/L (21-32); Glucose Level 87 mg/dL (74-106); Phenytoin (Dilantin) Level 6.3 ug/mL (10.0-20.0); Phosphorus 2.4 mg/dL (2.5-4.9); Potassium 3.4 mmol/L (3.5-5.1); Sodium Level 144 mmol/L (136-145)
[2020-08-23] MEDS ORDERED: POTASSIUM CL SA 10 MEQ TAB PO ONE ×3 (06:14→23:00)
[2020-08-23] MEDS ORDERED: POTASS/SODIUM PHOSPHATE 1 PKT POWD.PACK PO ONE (06:14)
[2020-08-23] MEDS ORDERED: POTASS/SODIUM PHOSPHATE 1 PKT POWD.PACK PO SCH (07:00)
[2020-08-23] MEDS: levETIRAcetam 750 MG in NA CHLORIDE 0.9% 100 ML IV SCH ×2 (07:39→20:01)
[2020-08-23] MEDS: POTASS/SODIUM PHOSPHATE 1 PKT POWD.PACK PO SCH ×3 (07:43→09:28)
[2020-08-23] MEDS: ENOXAPARIN 40 MG/0.4 ML SQ SCH (07:47)
[2020-08-23] MEDS: NICOTINE 21 MG/PAT TD SCH (07:47)
[2020-08-23] MEDS ORDERED: ENOXAPARIN 40 MG/0.4 ML SQ ONE (07:59)
[2020-08-23] MEDS ORDERED: NICOTINE 21 MG/PAT TD ONE (07:59)
[2020-08-23] MEDS: NA CHLORIDE 0.9% IV SCH ×2 (08:07→20:00)
[2020-08-23] MEDS: FOSPHENYTOIN PE IV SCH ×2 (08:07→20:00)
--- NOTE | 2020-08-23 08:50 | P.PN ---
Subjective Date of Service: 08/23/20 Chief Complaint: Acute opioid withdrawal with seizures, chest pain Subjective: Improving (Patient reports feeling better this morning, awake and alert Continues with nausea, mild diarrhea, restlessness, weakness, decreased sensation), Other (Patient had to episodes of tonic-clonic seizures lasting 10 seconds in 1 min yesterday Neurology at [facility] transfer for 24 hr eeg Nursing reports patient had 2 brief (10-15 second) seizures this morning/ overnight) Physical Examination - Vital Signs Temperature: 98.7 F Blood Pressure: 113/75 Pulse: 63 Respirations: 17 Pulse Ox (%): 100 - Physical Exam General: Alert, In no apparent distress, Other (appears very mildly restless) HEENT: Mucous membr. moist/pink, Sclerae nonicteric Neck: Supple Respiratory: Clear to auscultation bilaterally, Normal air movement Cardiovascular: No edema, Regular rate/rhythm, Normal S1 S2 Gastrointestinal: Soft and benign, Non-distended, No tenderness Musculoskeletal: No erythema, No tenderness Integumentary: No rashes, No significant lesion Neurological: Normal speech, Abnormal strength (4+/5 RUE and RLE, 5/5 in LUE/LLE), Abnormal sensation (Absent sensation: R face, R hand, R foot. Diminished sensation: Right arm to wrist, Right lower extremity abov ankle) Assessment & Plan Physician Review Additional Text: Acute opioid withdrawal complicated by seizures Opioid dependence/abuse Right-sided weakness and decreased sensation Tobacco use Acute opioid withdrawal complicated by seizures Opioid dependence/abuse -patient last heroin injection was 7:00 a.m. on day prior to admission, typically uses 2-3 g a day -admitted to ICU, initially NPO, aspiration precautions, IV fluid; patient improved and was advanced to full liquid on 08/21, continue aspiration precau tions -neurology consulted in the ED, patient loaded with fosphenytoin and continued on 100mg q8hr IV, increased to 400mg BID on 08/22 due to continued seizures -subsequently loaded with 1g Keppra on 08/19 and continued on 500mg BID for continued brief seizures -she initially had some improvement, but then was noted to have recurrent brief seizures on 08/22, Keppra increased to 750 mg b.i.d. -reviewed past clonidine doses, schedule 0.2 mg q.4 hr yesterday, BP/HR tolerating ok, continue p.r.n. Ativan as well, COWS protocol, pt improving, will decrease to 0.2 mg q5hr -given continued seizure activity (difficult ascertain if true epileptic events), and concern for possible subclinical seizures transfer to [facility] in [place] was initiated yesterday, initially accepted, and neurology called back denying acceptance, stating they would not have a bed available for her and recommended that we obtain a 2-3 hr EEG if possible. -continue to monitor closely -patient would like to return to inpatient rehab when appropriate - discuss with facility,SINTER MACHINE OPERATOR and MD refused readmission to the detox program due to seizure activity. Maverick, director, thinks that she may be able to return for [facility] component of their facility once she has completed withdrawal and seizures under control. Right-sided weakness and decreased sensation -initial CT brain: negative -initial MRI unable to be done due to the patient's restlessness. A repeat CT brain was performed ~ 24 hr after admission and was negative -MRI was eventually able to be obtained on 08/20: Negative for any acute pathology -discussed with neurology - possible Karlos's paralysis given recent seizures -with some mild improvement -dvt prophylaxis, no bleed noted Tobacco use -nicotine patch ordered Dispo: anticipate hospitalization for another 24-48hrs, dependent on course of withdrawal and seizures continue monitoring in ICU due to continued seizure like activity, patient has been stable from vitals / withdrawal will discuss with neurology, may need to be transferred due to continued seizures despite increase in medications Time Spent Managing Pts Care (In Minutes): 35
[2020-08-23] MEDS ORDERED: cloNIDine HCL 0.1 MG TAB PO SCH (09:00)
--- NOTE | 2020-08-23 09:21 | EEG ---
CHART: [id number] TEST ID#: [id number] DATE OF STUDY: 08/20/2020 THE EEG WAS RECORDED PORTABLE IN THE ICU ON A 17 CHANNEL MACHINE. ELECTRODES WERE APPLIED IN THE USUAL MANNER USING THE INTERNATIONAL 10-20 SYSTEM. THE WAKING BACKGROUND RHYTHM IN THIS RECORD CONSISTS OF WELL DEVELOPED AND WELL ORGANIZED WAVES OF 10 HZ., MAXIMAL IN THE POSTERIOR HEAD REGIONS WHICH ATTENUATE NORMALLY WITH EYE OPENING. EXCESS MODERATE VOLTAGE 18-22 HZ ACTIVITY IS EXPRESSED IN ALL REGIONS. THERE ARE NO FOCAL OR LATERALIZING FEATURES. NO EPILEPTIFORM ACTIVITY APPEARS. SLEEP DID NOT OCCUR. HYPERVENTILATION WAS NOT PERFORMED. PHOTIC STIMULATION PRODUCED FAIR DRIVING BILATERALLY. IMPRESSION: NORMAL EEG FOR THE AGE OF THE PATIENT IN [place], DROWSINESS AND SLEEP. THE PRESENCE OF EXCESS FAST (BETA) ACTIVITY IN THIS OTHERWISE NORMAL EEG LIKELY IS DUE TO A MEDICATION EFFECT.
[2020-08-23] MEDS ORDERED: cloNIDine HCL 0.1 MG TAB ONE ×2 (09:39→15:17)
[2020-08-23] MEDS: LORazepam 2 MG/ML VIAL IV PRN (22:01)
[2020-08-23] MEDS ORDERED: MELATONIN 5 MG TABLET PO ONE (23:00)
[2020-08-24] MEDS ORDERED: DIPHENHYDRAMINE 25 MG TAB/CAP PO ONE (00:44)
[2020-08-24] MEDS: LORazepam 2 MG/ML VIAL IV PRN ×5 (02:13→19:43)
[2020-08-24] MEDS: cloNIDine HCL 0.1 MG TAB PO SCH ×3 (02:15→15:00)
[2020-08-24] MEDS: NA CHLORIDE 0.9% 1,000 ML IV SCH ×2 (08:16→18:23)
[2020-08-24] MEDS: levETIRAcetam 750 MG in NA CHLORIDE 0.9% 100 ML IV SCH ×2 (08:19→19:49)
[2020-08-24] MEDS: NICOTINE 21 MG/PAT TD SCH (08:23)
[2020-08-24] MEDS: ENOXAPARIN 40 MG/0.4 ML SQ SCH (08:25)
[2020-08-24] MEDS: FOSPHENYTOIN PE IV SCH (09:24)
[2020-08-24] MEDS: NA CHLORIDE 0.9% IV SCH (09:24)
--- NOTE | 2020-08-24 17:28 | P.PN ---
Subjective Date of Service: 08/24/20 Chief Complaint: Acute opioid withdrawal with seizures, chest pain Seizure this morning reported. Patient was alert and oriented in no complaints when I saw her this afternoon. Physical Examination - Vital Signs Temperature: 98.9 F Blood Pressure: 104/57 Pulse: 58 Respirations: 20 Pulse Ox (%): 97 - Physical Exam General: Alert, In no apparent distress, Oriented x3 HEENT: Mucous membr. moist/pink, Sclerae nonicteric Neck: Supple, JVD not distended Respiratory: Clear to auscultation bilaterally, Normal air movement Cardiovascular: No edema, Regular rate/rhythm, Normal S1 S2 Gastrointestinal: Normal bowel sounds, Soft and benign, Non-distended, No tenderness Musculoskeletal: No swelling, No erythema Integumentary: No rashes Neurological: Normal speech, Normal strength at 5/5 x4 extr Assessment And Plan Physician Review Additional Text: Acute opioid withdrawal complicated by seizures Opioid dependence/abuse Right-sided weakness and decreased sensation Tobacco use Acute opioid withdrawal complicated by seizures Opioid dependence/abuse -patient last heroin injection was 7:00 a.m. on day prior to admission, typically uses 2-3 g a day -admitted to ICU, initially NPO, aspiration precautions, IV fluid; patient improved and was advanced to full liquid on 08/21, continue aspiration precautions -neurology consulted in the ED, patient loaded with fosphenytoin and continued on 100mg q8hr IV, increased to 400mg BID on 08/22 due to continued seizures -subsequently loaded with 1g Keppra on 08/19 and continued on 500mg BID for continued brief seizures -she initially had some improvement, but then was noted to have recurrent brief seizures on 08/22, Keppra increased to 750 mg b.i.d. -reviewed past clonidine doses, schedule 0.2 mg q.4 hr yesterday, BP/HR tolerating ok, continue p.r.n. Ativan as well, COWS protocol. -continue clonidine. -Dr. Green recommended 24 EEG and therefore transferred to [facility]. Patient declined transfer by neurology. They recommended 2-3 hr EEG. -awaiting EEG result -continue current antiseizure medications. -disposition to Detox/rehab program once seizures ceases. . Right-sided weakness and decreased sensation -initial CT brain: negative -MRI of brain: Negative for any acute pathology -possible Karlos's paralysis. -currently has no weakness. Tobacco use -nicotine patch ordered
[2020-08-24 21:30] VITALS: O2SAT 98
--- NOTE | 2020-08-24 22:51 | PN ---
Subjective: Ms. Rogel is resting in bed, in no acute distress. She reportedly had a 10 second seizur e this morning. She did not bite her tongue or lose bowel and bladder control. Although she does re port the seizure, she seems to recover very quickly and she did report some residual right-sided weak ness. However, casual observation notes that she uses both extremities equally well without any evid ence of weakness noted in the right upper or lower extremities. Objective: Vital Signs: Blood pressure 104/57, pulse 58, respiratory rate 18, temperature 98.9, oxy gen saturation 97%. Weight 140 pounds, height 5 feet 6 inches, BMI 22.6. Neurologic: Despite she is resting comfortably as indicated, she has no focal deficits despite repor t of right face arm and leg weakness, that is nonobvious. She is currently taking Keppra and Dilanti n at good dosages. Laboratory Data: Her potassium today was corrected to 3.9 from 3.3 yesterday. Kidney function is no rmal. Calcium is 8.1, slightly low. Phosphorus 2.4, slightly low. Her phenytoin level drawn on the was slightly low at 6.3. She is now on an increased dose of 400 mg at phenytoin daily and it sh ould be noted that she did come in positive for opiates and for amphetamines on her admission on the . She did have a prolonged EEG, report is pending. Assessment: Ms. 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 Her brain MRI shows no evidence of any acute ischemic or hemo rrhagic change. Her neck MRA shows no abnormalities. Her head and cervical spine CT scan showed no abnormalities. Plan: Continue with Keppra 750 mg twice daily. Continue with Dilantin 200 mg twice daily. The rosamaria ent would likely benefit from inpatient video EEG monitoring for event characterization. She also ac tually had checked herself into a rehab unit for drugs and she likely needs to return once she is rul ed out for frequent epileptic seizures as again these are likely to be nonepileptic mostly and possibly epileptic seizures as well. LANA/BRANDON Voice ID: [id number] Report ID: [id number]
--- NOTE | 2020-08-24 23:08 | P.DS ---
Admission Date: 08/19/20 Discharge Date: 08/24/20 Reason for Admission: Acute opioid withdrawal with seizures, chest pain Vital Signs/Physical Exam: Temp Pulse Resp BP Pulse Ox 98.9 F 58 20 104/57 L 97 08/24/20 17:28 08/24/20 17:28 08/24/20 17:28 08/24/20 17:28 08/24/20 17:28 Laboratory Data at Discharge: WBC 5.4 K/uL (4.3-10.9) D 08/21/20 05:26 Hgb 10.3 g/dL (12.0-15.0) L 08/21/20 05:26 Hct 31.1 % (36.0-45.0) L 08/21/20 05:26 Plt Count 306 K/uL (152-406) 08/21/20 05:26 PT 12.8 SECONDS (9.5-12.5) H 08/19/20 10:45 INR 1.09 08/19/20 10:45 Sodium 144 mmol/L (136-145) 08/23/20 05:02 Potassium 3.9 mmol/L (3.5-5.1) 08/24/20 07:30 BUN 2 mg/dL (7-18) L 08/23/20 05:02 Creatinine 0.53 mg/dL (0.55-1.3) L 08/23/20 05:02 Glucose 87 mg/dL (74-106) 08/23/20 05:02 Phosphorus 2.4 mg/dL (2.5-4.9) L 08/23/20 05:02 Magnesium 2.0 mg/dL (1.8-2.4) 08/23/20 05:02 Total Bilirubin 0.7 mg/dL (0.2-1.0) 08/21/20 05:26 AST 29 U/L (15-37) 08/21/20 05:26 ALT 36 U/L (12-78) 08/21/20 05:26 Alkaline Phosphatase 100 U/L (45-117) 08/21/20 05:26 Troponin I < 0.02 ng/mL (0.0-0.045) 08/20/20 04:42 Home Medications: NK [No Home Meds] 08/19/20
[2020-08-24 23:15] VITALS: BP 127/83; TEMP 99.9
--- NOTE | 2020-08-25 02:21 | P.DS ---
Admission Date: 08/19/20 Discharge Date: 08/25/20 Comment: Patient left AMA Reason for Admission: Acute opioid withdrawal with seizures, chest pain Brief History of Present Illness: 34-year-old female, PMH: +HepC > 15yrs Opioid dependence/abuse who recently s elf admitted herself to inpatient rehab yesterday. She was advised to come to the ED this morning due to new onset of chest pain and right sided weakness and decreased sensation. Patient said she did not notice the symptoms until the doctor at the rehab I was examining her at 6:00 a.m.. She reports at least a 5 year history of heroin use, using 2-3 g daily. She reports a prior history of opioid withdrawal with associated seizures. In the ED, she was noted to have 2 brief seizures. Neurology was consulted in the ED and patient was loaded with Dilantin and given Ativan. Labwork was notable for no leukocytosis, elevated alk-phos: 133, negative local level, urine tox positive for opiates and amphetamines. CT brain was negative for any acute intracranial process. Patient reports yesterday she was otherwise feeling feeling like her normal self. No recent illness common no fevers, chills, vision changes, abdominal pain, change in bowel/urinary habits. She would like to stop using opiates and is interested in returning to rehab. Hospital Course: During his hospital course patient was being evaluated for seizures. Neurology had seen patient and was following patient. Neurology plan was to: Continue with Keppra 750 mg twice daily. Continue with Dilantin 200 mg twice daily. The patient would likely benefit from inpatient video EEG monitoring for event characterization. She also actually had checked herself into a rehab unit for drugs and she likely needs to return once she is ruled out for frequent epileptic seizures as again these are likely to be nonepileptic mostly and possibly epileptic seizures as well. Patient stated that she wanted to go and patient left AMA. <Balbir Guerrero - Last Filed: 08/25/20 02:22> Admission Date: 08/19/20 Discharge Date: 08/25/20 - Problems (1) Opioid withdrawal Status: Acute (2) Seizures Status: Acute Hospital Course: I reviewed the chart and noticed patient signed out against medical advice. <camila coughlin - Last Filed: 08/25/20 15:27> Disposition: AMA-LEFT AGAINST MEDICAL ADVIC Vital Signs/Physical Exam: Temp Pulse Resp BP Pulse Ox 99.9 F 83 20 127/83 97 08/24/20 20:00 08/24/20 20:00 08/24/20 20:00 08/24/20 20:00 08/24/20 20:00 General: Other (Unable to obtain) Laboratory Data at Discharge: WBC 5.4 K/uL (4.3-10.9) D 08/21/20 05:26 Hgb 10.3 g/dL (12.0-15.0) L 08/21/20 05:26 Hct 31.1 % (36.0-45.0) L 08/21/20 05:26 Plt Count 306 K/uL (152-406) 08/21/20 05:26 PT 12.8 SECONDS (9.5-12.5) H 08/19/20 10:45 INR 1.09 08/19/20 10:45 Sodium 144 mmol/L (136-145) 08/23/20 05:02 Potassium 3.9 mmol/L (3.5-5.1) 08/24/20 07:30 BUN 2 mg/dL (7-18) L 08/23/20 05:02 Creatinine 0.53 mg/dL (0.55-1.3) L 08/23/20 05:02 Glucose 87 mg/dL (74-106) 08/23/20 05:02 Phosphorus 2.4 mg/dL (2.5-4.9) L 08/23/20 05:02 Magnesium 2.0 mg/dL (1.8-2.4) 08/23/20 05:02 Total Bilirubin 0.7 mg/dL (0.2-1.0) 08/21/20 05:26 AST 29 U/L (15-37) 08/21/20 05:26 ALT 36 U/L (12-78) 08/21/20 05:26 Alkaline Phosphatase 100 U/L (45-117) 08/21/20 05:26 Troponin I < 0.02 ng/mL (0.0-0.045) 08/20/20 04:42 <Balbir Guerrero - Last Filed: 08/25/20 02:22> Vital Signs/Physical Exam: Temp Pulse Resp BP Pulse Ox 99.9 F 83 20 127/83 97 08/24/20 20:00 08/24/20 20:00 08/24/20 20:00 08/24/20 20:00 08/24/20 20:00 Laboratory Data at Discharge: WBC 5.4 K/uL (4.3-10.9) D 08/21/20 05:26 Hgb 10.3 g/dL (12.0-15.0) L 08/21/20 05:26 Hct 31.1 % (36.0-45.0) L 08/21/20 05:26 Plt Count 306 K/uL (152-406) 08/21/20 05:26 PT 12.8 SECONDS (9.5-12.5) H 08/19/20 10:45 INR 1.09 08/19/20 10:45 Sodium 144 mmol/L (136-145) 08/23/20 05:02 Potassium 3.9 mmol/L (3.5-5.1) 08/24/20 07:30 BUN 2 mg/dL (7-18) L 08/23/20 05:02 Creatinine 0.53 mg/dL (0.55-1.3) L 08/23/20 05:02 Glucose 87 mg/dL (74-106) 08/23/20 05:02 Phosphorus 2.4 mg/dL (2.5-4.9) L 08/23/20 05:02 Magnesium 2.0 mg/dL (1.8-2.4) 08/23/20 05:02 Total Bilirubin 0.7 mg/dL (0.2-1.0) 08/21/20 05:26 AST 29 U/L (15-37) 08/21/20 05:26 ALT 36 U/L (12-78) 08/21/20 05:26 Alkaline Phosphatase 100 U/L (45-117) 08/21/20 05:26 Troponin I < 0.02 ng/mL (0.0-0.045) 08/20/20 04:42 <camila coughlin - Last Filed: 08/25/20 15:27> Patient Discharge Instructions: Patient left AMA <Balbir Guerrero - Last Filed: 08/25/20 02:22> <camila coughlin - Last Filed: 08/25/20 15:27> Home Medications: NK [No Home Meds] 08/19/20
--- NOTE | 2020-08-25 14:16 | EEG ---
CHART: [id number] TEST ID#: [id number] DATE OF STUDY: 08/23/2020 THE EEG WAS RECORDED PORTABLE IN THE ICU ON A 14 CHANNEL MACHINE. ELECTRODES WERE APPLIED IN THE USUAL MANNER USING THE INTERNATIONAL 10-20 SYSTEM. THE WAKING BACKGROUND RHYTHM IN THIS RECORD CONSISTS OF WELL DEVELOPED AND WELL ORGANIZED WAVES OF 10 HZ., MAXIMAL IN THE POSTERIOR HEAD REGIONS WHICH ATTENUATE NORMALLY WITH EYE OPENING. EXCESS LOW TO MODERATE VOLTAGE 18-22 HZ ACTIVITY IS EXPRESSED IN ALL REGIONS. THERE ARE NO FOCAL OR LATERALIZING FEATURES. NO EPILEPTIFORM ACTIVITY APPEARS. SLEEP DID NOT OCCUR. HYPERVENTILATION WAS NOT PERFORMED. PHOTIC STIMULATION PRODUCED WAS NOT PERFORMED. IMPRESSION: NORMAL EEG FOR THE AGE OF THE PATIENT IN [place]. THE PRESENCE OF EXCESS LOW-VOLTAGE ACTIVITY IS LIKELY A MEDICATION EFFECT.
--- OUTSIDE RECORDS SUMMARY | 2020-08-25 15:13 | XMS REPORT | Clinical Summary ---
:1985 Author Organization [facility] Address [address] [place] [address] Care Team Providers Name Role Phone Unavailable Primary Care Provider Unavailable Allergies Not on File Medications Not on file Active Problems Not on file Encounters Date Type Specialty Care Team Description 08/22/2020 Hospital Encounter after 08/25/2019 Social History Tobacco Use Types Packs/Day Years Used Date Never Assessed Sex Assigned at Date Recorded Not on file Job Start Date Occupation Industry Not on file Not on file Not on file Travel History Travel Start Travel End No recent travel history available. Last Filed Vital Signs Not on file Plan of Treatment Not on file Results Not on fileafter 08/25/2019
--- OUTSIDE RECORDS SUMMARY | 2020-08-25 15:14 | XMS REPORT | Continuity of Care Document ---
:1985 Author Organization [facility] t Address [address] [place] [address] Care Team Providers Name Role Phone Deirdre SPRING, Ashish Serrano Attending Clinician Karina COLLAZO Attending Clinician Unavailable Payers Payer Name Policy Type Policy Number Effective Date Expiration Date Yani wallace [facility] xxxxxxxxx 2020 [facility] SELF-PAYSELF- 00:00:00 PAY UNSCREENEDxxx /06/20 20-[id number] [place] [address] Problems Condition Condition Condition Status Onset Resolution Last Treating Co mments Source Name Details Category Date Date Treatment Clinician Date Mood Mood Disease Active [facility] disorder disorder 04-17 Health 00:00: 00 Syncope Syncope Disease Active [facility] Trauma Trauma Disease Active [facility] Periorbita Periorbita Disease Active [facility] ecchymosis ecchymosis of left of left eye eye Numbness Numbness Disease Active [facility] right in right Health leg leg Diplopia Diplopia Disease Active [facility] Allergies, Adverse Reactions, Alerts Allergy Allergy Status Severity Reaction(s) Onset Inactive Treating Comm ents Source Name Type Date Date Clinician juliet DA Active [facility] 8[facility]14 [place] 00:00: e 00 [facility] menthol DA Active [facility] 8[facility] Clear 00:00: Lim 00 [facility] Family History Family Member Diagnosis Comments Start Date Stop Date Source Natural father Cancer [facility] Natural father Psychiatry [facility] Maternal grandfather Cancer [facility] Natural mother Hypertension [facility] Natural mother Psychiatry [facility] Paternal grandfather [facility] Paternal grandmother Cancer [facility] Social History Social Habit Start Date Stop Date Quantity Comments Source Sex Assigned At [facility] Alcohol intake 2020-01-06 2020-01-06 Current [facility] 00:00:00 00:00:00 non-drinker of alcohol (finding) Medications Ordered Filled Start Stop Current Ordering Indication Dosage Frequency Signature Comments Components Source Medication Medication Date Date Medication? Clinician (SIG) Name Name divalproex Yes Mood 1000mg Take 2 Andre ris (DEPAKOTE 5-30 disorder tablets [facility] ER) 500 mg 00:00: mouth at extended 00 bedtime release nightly. tablet zolpidem Yes Mood 10mg Take 1 [facility] (AMBIEN) 10 5-30 disorder tablet [facility] mg Tab 00:00: mouth at 00 bedtime nightly. Vital Signs Vital Name Observation Time Observation Value Comments Source Systolic blood pressure 2020-01-06 19:42:00 115 mm[Hg] [facility] Diastolic blood pressure 2020-01-06 19:42:00 57 mm[Hg] [facility] Heart rate 2020-01-06 19:42:00 100 /min [facility] Body temperature 2020-01-06 19:42:00 37.11 Jael Yasemin is [facility] Respiratory rate 2020-01-06 19:42:00 18 /min Yasemin is [facility] Oxygen saturation in 2020-01-06 19:42:00 100 /min [facility] Arterial blood by Pulse oximetry Body height 2020-01-06 17:44:00 167.6 cm [facility] Body weight 2020-01-06 17:44:00 68.04 kg [facility] BMI 2020-01-06 17:44:00 24.21 kg/m2 [facility] Procedures Procedure Date / Time Performed Performing Clinician Sourc e POCT URINE DIPSTICK - 2020-01-06 18:37:00 Ashvin Campa Andre [facility] VBG POC 2020-01-06 18:34:00 Ashish Gilmorea lth LACTIC ACID 2020-01-06 18:20:00 Ashvin Campa alth BLOOD CULTURE 2020-01-06 18:20:00 Ashvin Campa alth CBC/DIFF 2020-01-06 18:19:00 Ashvin Campa alth SED RATE 2020-01-06 18:19:00 Ashvin Campa alth C-REACTIVE PROTEIN HIGH 2020-01-06 18:19:00 [facility] BETA-HCG, QUANTITATIVE 2020-01-06 18:19:00 Ashvin Campa Buckley rris [facility] CBC 2020-01-06 18:19:00 Ashvin Campa alth BLOOD CULTURE 2020-01-06 18:19:00 Ashvin Campa alth Plan of Care Planned Activity Planned Date Details Comments Source Future Scheduled Test 2020-08-19 00:00:00 IMM Influenza [facility] Seasonal Aug to January (>/= 19 yrs) [code = IMM Influenza Seasonal Aug to January (>/= 19 yrs)] Future Scheduled Test 2005 00:00:00 Screening for [facility] malignant neoplasm of cervix (procedure) [code = 464593501] Encounters Start End Encounter Admission Attending Care Care Encounter Source Date/Time Date/Time Type Type Clinicians Facility Department ID 2018-03-28 2018-05-14 [facility] [id number] [address] [place] 00:00:00 00:00:00 [facility] 2018-05-10 2018-05-10 [facility] [id number] [place] 14:12:00 14:12:00 [facility] 2018-04-05 2018-04-05 Outpatient [facility] [id number] [address] [place] 15:32:59 15:32:59 Health 2018-04-04 2018-04-04 Outpatient [facility] [id number] [address] [place] 18:34:16 18:34:16 Health 2018-04-04 2018-04-04 Outpatient [facility] [id number] [address] [place] 10:28:45 10:28:45 Health 2018-04-03 2018-04-03 Outpatient [facility] [id number] [place] 13:44:09 13:44:09 Health 2018-04-03 2018-04-03 Outpatient [facility] [id number] [address] [place] [address] 13:44:09 13:44:09 Health Results Test Description Test Time Test Comments Results Result Comments Source COVID 19 INHOUSE AG 2020-08-11 15:31:00 Test Item Value Reference Range Interpretation Comme nts COVID 19 INHOUSE AG (test code = [id number]) NEGATIVE UR HCG [id number] 14:21:00 Test Item Value Reference Range Interpretation Comments UR HCG QUAL (test NEGATIVE This HCGQL test is NOT code = HCGQLU) applicable fo r MALE patients.Check with nurse about probable order error.If Tumor Marker Test needed, nu rse should order test "HCG TU"(Test #550.40550)---- - URINALYSIS [id number] 14:19:00 Test Item Value Reference Range Interpretation Comments UA COLOR (test code = COLU) Dark-Yellow YELLOW UA APPEARANCE (test code = Cloudy CLEAR A APPU) UA GLUCOSE DIPSTICK (test NEGATIVE mg/dL NEGATIVE code = DGLUU) UA BILIRUBIN DIPSTICK (test NEGATIVE mg/dL NEGATIVE code = BILU) UA KETONE DIPSTICK (test code NEGATIVE mg/dL NEGATIVE = KETU) UA SPECIFIC GRAVITY (test 1.031 1.001-1.035 code = SGU) UA BLOOD DIPSTICK (test code Negative mg/dL NEGATIVE = MARCO) UA PH DIPSTICK (test code = 6.0 5.0-8.0 MARY) UA PROTEIN DIPSTICK (test 30 (1+) mg/dL NEGATIVE A code = PROU) UA UROBILINIOGEN DIPSTICK 4.0 (2+) mg/dL NEGATIVE A (test code = URO) UA NITRITE DIPSTICK (test NEGATIVE NEGATIVE code = LEE) UA LEUKOCYTE ESTERASE W NEGATIVE Jairo/uL NEGATIVE REFLEX (test code = LEUUR) UA WBC (test code = WBCU) 0-5 per HPF 0-5 UA RBC (test code = RBCU) 0-2 #/HPF 0-5 UA EPITHELIAL CELLS (test MANY per HPF FEW code = EPIU) UA BACTERIA (test code = MODERATE #/HPF NONE A BACU) UA MUCUS (test code = MUCU) MANY #/LPF FEW A Urine Source? Clean [facility]atch[facility]vel Coronavirus 2018 [id number] 13:20:00 Test Item Value Reference Range Interpretation Comments Novel Coronavirus 2018 Negative Negative Previ ously reported nCoV (test code = result: SIOBHAN CHOU COVID19) Edited by: [facility] E on 07/05/20:806104 / 1320: COVID19 previously repo rted as: NEGATIVE Does patient have the clinical criteria consistent with COVID-19? YIs the patient going to be discharged home? [facility] 2018 [id number] 08:49:00 Test Item Value Reference Range Interpretation Comments Novel Coronavirus 2019 nCoV (test NEGATIVE code = COVID19) Does patient have the clinical criteria consistent with COVID-19? YIs the patient going to be discharged home? 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 COMPARISON: June 28, 2018. Location: [facility]. No acute infiltrates, effusion or congestion is noted. Mild hyperinflation. The cardiac and mediastinal silhouette are within normal limits. IMPRESSION: No acute infiltrates, effusion or congestion. at 1308 Reported and signed by: Antonio Rojas M.D. CC: Sarahi Robles NP Technologist: Deena Gr RT(R) Trnscrd Date/Time/By: 07/02/2020 (4421) :By: [email or web address] Orig Print D/T: S: 07/02/2020 (3393) PAGE 1 Signed ReportBlood Culture x2 - 2 non-specific [id number] 19:02:00 Test Item Value Reference Range Interpretation Comments Blood Culture (test No growth 5 days code = 600-7) FLAQUITA (test code = FLAQUITA) The specimen volume collected is too low for optimal organism recovery. Suboptimal volume inoculation of bottles can result in significant delays in organism recovery or false negative results. [facility] [id number] 20:37:00 Test Item Value Reference Range Interpretation Comments Sed Rate (test code = 75832434) 44 0-<20 mm/Hr H Lab Interpretation (test code = Abnormal 22698-2) [facility], [id number] 19:12:00 Test Item Value Reference Range Interpretation Comments hCG, Quantitative (test code = <1.0 <5.0 mIU/mL 72420677) Lab Interpretation (test code = Normal 02759-3) [facility])2020-01-06 19:06:00 Test Item Value Reference Range Interpretation Comments CRP, High Sensitivity (Cardiac) 4.6 mg/L <1.0 H (test code = 36135956) Lab Interpretation (test code = Abnormal 67402-5) [facility] [id number] 19:00:00 Test Item Value Reference Range Interpretation Comments Lactic Acid (test code = 17883899) 0.9 mmol/L 0.5-2.2 Lab Interpretation (test code = Normal 43545-4) [facility]/[id number] 18:59:00 Test Item Value Reference Range Interpretation Comments WBC (test code = 6690-2) 3.6 K/uL 4.5-11 L RBC (test code = 789-8) 4.34 4.20- 5.40 M/uL Hemoglobin (test code = 718-7) 12.1 g/dL 12-16 Hematocrit (test code = 4544-3) 37.3 % 37-47 MCV (test code = 787-2) 85.9 fL 82-92 MCH (test code = 785-6) 27.9 pg 27-32 MCHC (test code = 786-4) 32.4 g/dL 32-36 RDW (test code = 36950-0) 44.4 fL 36.4-46.3 Platelet (test code = 777-3) 309 K/uL 150-400 Mean Platelet Volume (test code = 9.5 fL 9.4-12.4 47507-4) Percent NRBC (test code = 34421007) 0.0 % Neutrophil (test code = 770-8) 62.2 % 34-70 Lymphs (test code = 736-9) 33.1 % 20-50 Monocytes (test code = 5905-5) 4.4 % 5-12 L Eos (test code = 713-8) 0.0 % 0.7-5 L Basos (test code = 706-2) 0.0 % 0.1-1.2 L Immature Granulocytes (test code = 0.3 % 0-0.5 33506552) Neutrophils (Absolute) (test code = 2.25 K/uL 1.56-6.13 75813135) Lymphs (Absolute) (test code = 1.20 K/uL 1.18-3.74 37158531) Monocytes(Absolute) (test code = 0.16 K/uL 0.24-0.36 L 44688735) Eos (Absolute) (test code = 0.00 K/uL 0.04-0.36 L 66416860) Baso (Absolute) (test code = 0.00 K/uL 0.01-0.08 L 05301035) Immature Grans (Abs) (test code = 0.01 K/uL 0-0.03 21623078) Absolute NRBC (test code = 0.00 K/uL 92102295) Lab Interpretation (test code = Abnormal 37322-6) [facility] Urine - [id number] 18:37:00 Test Item Value Reference Range Interpretation Comments Control (test code = 7172) Pass (test code = 7173) Negative Lab Interpretation (test code = Normal 60770-2) [facility] VBG POC docked [id number] 18:37:00 Test Item Value Reference Range Interpretation Comments pH, Hua POC (test code = 7.41 7.33-7.43 65238686) pCO2,Hua POC (test code 40.5 38- 50 mmHg = 19028758) PO2, Venous POC (BKR) 27 50- 75 mm Hg L (test code = 54874181) Ionized Calcium POC 1.17 mmol/L 1.15-1.29 (test code = 99942449) HCO3, Hua POC (test code 25 mmol/L 22-26 = 14639092) TCO2 POC (test code = 27 mmol/L 21-32 79777257) Base Excess Hua POC 1 mmol/L (test code = 12761007) Lorenzo's Test (test code NESHA = 06341143) Sample Type (test code = IVEN 41185776) Site (test code = ADIA Physician Notified 89814726) % Sat, Hua POC (test 50 % code = 40963401) Lab Interpretation (test Abnormal code = 49030-3) [facility] METABOLIC [id number] 15:24:00 Test Item Value Reference Range Interpretation Comments SODIUM (test code = NA) 136 mEq/L 134-147 N POTASSIUM (test code = 3.6 mEq/L 3.4-5.0 N K) CHLORIDE (test code = 106 mEq/L 100-108 N CL) CARBON DIOXIDE (test 19 mEq/L 21-33 L code = CO2) ANION GAP (test code = 15 0-20 N GAP) GLUCOSE (test code = 61 mg/dL 70-110 L GLU) BLOOD UREA NITROGEN 17 mg/dL 7-18 N (test code = BUN) GLOMERULAR FILTRATION 114.4 105-110 H Units of measure = RATE (test code = GFR) ml/mi n/1.73 m2 CREATININE (test code = 0.6 mg/dL 0.6-1.3 N CREAT) CALCIUM (test code = 8.8 mg/dL 8.0-10.5 N CA) HCG SERUM [id number] 15:17:00 Test Item Value Reference Range Interpretation Comments HCG SERUM QUAL (test code = SERUM NEGATIVE NEGATIVE HCGQL) CBC W/AUTO [id number] 15:11:00 Test Item Value Reference Range Interpretation Comments WHITE BLOOD CELL (test code = 6.52 x10 3/uL 4.5-11.0 N WBC) RED BLOOD CELL (test code = 4.42 x10 6/uL 3.54-5.02 N RBC) HEMOGLOBIN (test code = HGB) 12.6 g/dL 11.0-15.0 N HEMATOCRIT (test code = HCT) 37.6 % 33.0-45.0 N MEAN CELL VOLUME (test code = 85.1 fL 81.0-99.0 N MCV) MEAN CELL HGB (test code = MCH) 28.5 pg 27.0-33.0 N MEAN CELL HGB CONCETRATION 33.5 g/dL 33.0-37.0 N (test code = MCHC) RED CELL DISTRIBUTION WIDTH CV 13.8 % 11.5-14.5 N (test code = RDW) RED CELL DISTRIBUTION WIDTH SD 42.9 fL 37.0-54.0 N (test code = RDW-SD) PLATELET COUNT (test code = 421 x10 3/uL 150-400 H PLT) MEAN PLATELET VOLUME (test code 10.2 fL 7.0-9.0 H = MPV) NEUTROPHIL % (test code = NT%) 45.4 % 56.0-77.0 L IMMATURE GRANULOCYTE % (test 0.2 % 0.0-2.0 N code = IG%) LYMPHOCYTE % (test code = LY%) 45.1 % 14.0-32.0 H MONOCYTE % (test code = MO%) 8.4 % 4.8-9.0 N EOSINOPHIL % (test code = EO%) 0.3 % 0.3-3.7 N BASOPHIL % (test code = BA%) 0.6 % 0.0-2.0 N NUCLEATED RBC % (test code = 0.0 % 0-0 N NRBC%) NEUTROPHIL # (test code = NT#) 2.96 x10 3/uL 2.0-7.6 N IMMATURE GRANULOCYTE # (test 0.01 x10 3/uL 0.00-0.03 N code = IG#) LYMPHOCYTE # (test code = LY#) 2.94 x10 3/uL 1.0-3.8 N MONOCYTE # (test code = MO#) 0.55 x10 3/uL 0.1-0.8 N EOSINOPHIL # (test code = EO#) 0.02 x10 3/uL 0.0-0.2 N BASOPHIL # (test code = BA#) 0.04 x10 3/uL 0.0-0.2 N NUCLEATED RBC # (test code = 0.00 x10 3/uL 0.0-0.1 N NRBC#) MANUAL DIFF REQUIRED (test code NO = MDIFF) - CT HEAD/BRAIN W/O [id number] 14:40:00 Name: JASPAL HASSAN [facility] : 1985 Age/S: 33 / F [address] [place] [address] Unit #: [id number] Loc: SAMI [id number] Phys: Marina Thomas NP Acct: [id number] Dis Date: Status: REG ER PHONE #: [phone] Exam Date: 03/18/2019 1422 FAX #: [phone] Reason: Seizure EXAMS: CPTCODE: [id number] CT HEAD/BRAIN W/O CONT 98431 CT HEAD WITHOUT CONTRAST: 03/18/2019 COMPARISON: April 07, 2010 CLINICAL HISTORY: Seizure One or more of the following dose techniques were utilized; automated exposurecontrol, adjustment of the mA and/or kV according to patient size, and/or utilization of iterative reconstruction technique. DLP: 419.70 mGy- cm. Examination was performed on an emergency basis. The ventricles were normal in size, shape and position. No evidence of extra-axial fluid collection or midline shift. No areas of abnormal attenuation or acute intracranial hemorrhage were identified. Visualizedparanasal sinuses were clear. CONCLUSION: No evidence of acute intracranial abnormality. at 1440 Reported and signed by: Clarence Crisostomo M.D. CC: Marina Thomas NP Technologist:Rosa Elena Hendrix RT(R)(CT) CTDI: DLP: Trnscb Date/Time: 03/18/2019 (3340) [email or web address] Orig Print D/T: S: 03/18/2019 (1445) CTD I: DLP: PAGE 1 Signed ReportCHEST SINGLE (PORTABLE) [place] [address] Patient Name: JASPAL HASSAN MR #: [id number] : 1985 Age/Sex: 32/F Req #: [id number] Adm Physician: Ordered by: JESSICA GRULLON Report #: [id number] Location: ER Room/Bed: Procedure: [id number] DX/CHEST SINGLE (PORTABLE) Exam Date: Exam Time: REPORT STATUS: Signed PROCEDURE: A single AP view of the chest. COMPARISON: None. INDICATIONS: LEG PAIN, INFECTION FINDINGS: Lines/tubes: None. Lungs: The lungs are well inflated and clear. There is no evidence of pneumonia or pulmonary edema. Pleura: There is no pleural effusion or pneumothorax. Heart and mediastinum: The heart and the mediastinum are unremarkable. Bones: No acute bony abnormality. IMPRESSION: 1. No acute cardiopulmonary abnormalities. Tylor Montana M.D. Dictated by: Tylor Montana M.D. on 09/26/2017 at 18:54 Electronically approved by: Tylor Montana M.D. on 09/26/2017 at 18:54 Dictated By: TYLOR MONTANA MD [id number] Transcribed By: JAYME on 09/26/17 2924COPY TO: JESSICA GRULLON
== END 2020-08-24 21:30 | disposition left against medical advice (07) | DRG 101 ==
LOC: ER 09:28 → ERHOLD 12:47 → 4TH 08-23 17:50
PROVIDERS: ADMIT Hospitalist; ATTEND Internal Medicine
DX: G40.909 Epilepsy, unspecified, not intractable, without status epilepticus (principal); F11.23 Opioid dependence with withdrawal; F17.200 Nicotine dependence, unspecified, uncomplicated; R53.1 Weakness; T40.2X5A Adverse effect of other opioids, initial encounter; Z20.828 Contact with and (suspected) exposure to other viral communicable diseases
CPT/HCPCS: 36415; 70450; 70544; 70549; 70553; 71045; 72125; 80048; 80053; 80076; 80177; 80185; 80307; 80320; 81003; 81025; 83735; 83880; 84100; 84132; 84484; 85025; 85610; 93005; 95816; 96374; 96375; 99285; A9577; J1200; J1650; J1953; J2405; J3486; J7030; Q2009; U0003